=== PATIENT | female | born 1940 | race Caucasian/White ===

== ENCOUNTER 2018-10-28 11:03 | Outpatient (CLI) | payer MEDICARE, OTHER ==
[~2018-10-28 11:03] MED LIST: Iopamidol 300 61% 100 ML VIAL FS ONE
--- NOTE | 2018-10-28 13:23 | CT ---
CT ABDOMEN AND PELVIS WITH ORAL AND IV CONTRAST: HISTORY: Severe epigastric pain COMPARISON: None FINDINGS: The lung bases are unremarkable. There is a calcified granuloma in the liver. The patient is post cho lecystectomy, appendectomy and hysterectomy. The spleen, pancreas, adrenal glands and right kidney are normal. There is a 2 cm cystic mass in the left renal cortex with coarse posterior calcification. No free air, free fluid or lymphadenopathy seen in the abdomen or pelvis. The small bowel loops are n ot abnormally dilated. There is mild colonic diverticulosis. There are vascular calcifications without evidence of aneurysmal dilatation of the abdominal aorta. There are degenerative changes in t he spine. IMPRESSION: 1. Left renal mass. Follow-up exam is recommended in 3 months. 2. Colonic diverticulosis.
== END 2018-10-28 11:04 | disposition home or self-care (01) ==
LOC: SCSCT 11:03
PROVIDERS: ATTEND Family Medicine
DX: K21.9 Gastro-esophageal reflux disease without esophagitis (principal); R10.13 Epigastric pain; N28.89 Other specified disorders of kidney and ureter; K57.30 Diverticulosis of large intestine without perforation or abscess without bleeding
CPT/HCPCS: 74177; Q9967

== ENCOUNTER 2019-02-07 07:26 | Outpatient (CLI) | payer MEDICARE, OTHER ==
--- NOTE | 2019-02-07 08:56 | CT ---
CT ABDOMEN WITH AND WITHOUT CONTRAST: HISTORY: Kidney mass. COMPARISON: CT examination from October 2018. FINDINGS: The lung bases are clear. No pericardial effusion. On the noncontrast portion of the examination there is a large calculus within the dilated interpolar calyx. This calculus measures 18 mm in greatest dimension. No hydroureteronephrosis. No other filling defects within the renal calyces, pelves, nor ureters on t he delayed phase of contrast. Of note this is a CT abdomen and not CT abdomen/pelvis examination therefore the distal ureters and urinary bladder are not evaluated. No abnormal urothelial enhancement although on what is labeled as the arterial phase there is already contrast within the collecting systems therefore evaluation is limited. Prior cholecystectomy. The liver and spleen as well as pancreas are unremarkable. Adrenal glands are unremarkable. The aortic contour is nonaneurysmal. Very small sliding hiatal hernia. IMPRESSION: What was described as a mass of the left kidney is a large calcification within the dilated interpola r calyx. No solid enhancing mass. Transcribed Date/Time: 02/07/2019 9:07 AM
[2019-02-07] MEDS ORDERED: Iopamidol 370 76% 100 ML VIAL ONE (09:00)
== END 2019-02-07 07:27 | disposition home or self-care (01) ==
LOC: SCSCT 07:26
PROVIDERS: ATTEND Family Medicine
DX: N28.89 Other specified disorders of kidney and ureter (principal); N13.30 Unspecified hydronephrosis
CPT/HCPCS: 74170; Q9967

== ENCOUNTER 2019-04-24 06:12 | Outpatient (CLI) | payer MEDICARE, OTHER ==
[2019-04-24 11:35] LABS: Hemoglobin 13.7 g/dL (12.0-16.0); Mean Corpuscular HGB CONC 32.7 g/dL (32.0-36.0); Mean Corpuscular Hemoglobin 31.8 pg (27.0-31.0); Mean Corpuscular Volume 97.2 fL (78.0-98.0); Mean Platelet Volume 8.1 fL (7.4-10.4); Platelet Count 208 thou/uL (130-400); RBC Distribution Width 11.8 % (11.5-14.5); Red Blood Cell (RBC) Count 4.32 mill/uL (4.20-5.40); White Blood Cell (WBC) Count 7.4 thou/uL (4.8-10.8)
[2019-04-24 11:48] LABS: Bacteria/HPF None Seen HPF (None Seen); Bilirubin Negative (Negative); Blood, Urine Trace (Negative); Clarity Clear (Clear); Glucose, Urine (Dipstick) Normal (Negative); Leukocyte 75 Leu/uL (Negative); Nitrite Negative (Negative); Protein, Urine (Dipstick) Negative (Neg-Trace); RBC/HPF 0-3 HPF (0-3); Squamous Epithelial 0-3 HPF (0-3); Urobilinogen Normal mg/dL (Less than 2); WBC/HPF 0-3 HPF (0-3)
[2019-04-24 12:04] LABS: Anion Gap 12 mmol/L (10-20); BUN (Urea Nitrogen) 18 mg/dL (9.8-20.1); Calc. Creatinine Clearance 0 mL/min (70-130); Calcium 9.5 mg/dL (7.8-10.44); Carbon Dioxide 26 mmol/L (23-31); Chloride 106 mmol/L (98-107); Estimated GFR-MDRD 74; Glucose 93 mg/dL (83-110); Sodium 140 mmol/L (136-145)
== END 2019-04-24 06:13 | disposition home or self-care (01) ==
LOC: LABBT 06:12
PROVIDERS: ATTEND Urology
DX: Z01.818 Encounter for other preprocedural examination (principal); N20.0 Calculus of kidney; N28.89 Other specified disorders of kidney and ureter
CPT/HCPCS: 80048; 81001; 85027; 87086; 93005; 93010

== ENCOUNTER 2019-05-02 06:14 | Day surgery (SDC) | payer MEDICARE, OTHER ==
[2019-04-24 09:56] VITALS: BMI 26.1
[2019-05-02] MEDS ORDERED: Iothalamate Meglumine 60% 50 ML VIAL FS ONE (07:10)
[2019-05-02] MEDS ORDERED: Levofloxacin 500 mg/D5W 100 ml Premix Bag ONE (07:14)
[2019-05-02] MEDS ORDERED: Fentanyl 100 MCG/2 ML VIAL ONE (09:13)
--- NOTE | 2019-05-02 10:28 | RAD ---
INTRAPROCEDURE FLUOROSCOPY FOR RETROGRADE IVP: HISTORY: Left-sided renal calculi. FINDINGS: There are increased calcifications projecting over the left renal silhouette compatible with intraren al calculi. Multiple fluoroscopic images demonstrate contrast opacification of the left intra- and extrarenal collecting system. There is focal dilatation of the calyx at the level of the renal calcul i. Last images demonstrate a left-sided ureteral stent, incompletely evaluated. IMPRESSION: Fluoroscopy as above. Transcribed Date/Time: 05/02/2019 10:56 AM
[2019-05-02] MEDS ORDERED: Phenazopyridine HCl 97.5 MG TABLET ONE (10:40)
[2019-05-02] MEDS ORDERED: Oxybutynin 5 MG TAB ONE (10:40)
[2019-05-02] MEDS ORDERED: Ketorolac Tromethamine 30 MG/ML VIAL ONE (10:40)
--- NOTE | 2019-05-02 11:39 | OP ---
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 POSTOPERATIVE DIAGNOSES: Left calyceal diverticulum with stenotic infundibulum and kidney stones within the diverticulum. PROCEDURES PERFORMED: Left ureteroscopy with laser of stenotic infundibulum/intrarenal stricture, laser lithotripsy of calyceal stones. ANESTHESIA: General. COMPLICATIONS: None. BLOOD LOSS: None. SPECIMEN: None. DESCRIPTION OF PROCEDURE: After informed consent, the patient was taken to the operating room, transferred to the table under her own power. Anesthesia was established. A time-out was performed showing the correct patient, site, and procedure. Preoperative antibiotics were administered. She was prepped and draped in the lithotomy position. The rigid cystoscope was advanced through the urethra into the bladder. The bladder was systematically examined noting no mucosal abnormalities. The left ureteral orifice was cannulated with a wire, which was negotiated up to the level of the renal pelvis under fluoroscopic guidance. Under fluoroscopy, the stones were clearly seen in the mid pole calyceal diverticulum. An access sheath was placed over the wire into the mid to proximal ureter. A retrograde pyelogram was performed through this showing good filling of the renal pelvis. The flexible ureteroscope was then passed through the access sheath into the renal pelvis. The stenotic infundibulum leading to the stones was identified and tissue settings were used with a 200 micron laser fiber to open the infundibulum to allow access. The angle into the infundibulum remained very difficult. The laser fiber was used to treat the stones in a diverticulum. On inspection, there were several stones between 5 and 10 mm in size. Visualization was difficult due to the angle into the infundibulum and a mild amount of bleeding from opening the stenotic infundibulum. I was eventually unable to safely proceed with the procedure, at which point, a wire was replaced. The access sheath and scope were withdrawn, and a 6 x 24 double-J ureteral stent positioned with a curl in the kidney and curl in the bladder under fluoroscopic guidance. The patient was then awoken from anesthesia, transferred back to her hospital bed, and taken to PACU in stable condition, where she will discharge home upon recovery. I will see her next Wednesday, at which point, we will check a KUB to determine if shockwave lithotripsy or repeat ureteroscopy would be most beneficial for her. Job ID: [id number]
[2019-05-02] MEDS ORDERED: Dexamethasone 20 MG/5 ML VIAL ONE (13:24)
[2019-05-02] MEDS ORDERED: Lidocaine 1% PF 5 ML VIAL ONE (13:24)
[2019-05-02] MEDS ORDERED: PROPOFOL 200 MG/20 ML VIAL ONE (13:24)
[2019-05-02] MEDS ORDERED: Ondansetron PF 4 MG/2 ML Vial ONE (13:24)
== END 2019-05-02 12:05 | disposition home or self-care (01) ==
LOC: SDC 06:14
PROVIDERS: ATTEND Urology
PROC: 0TF48ZZ Fragmentation in Left Kidney Pelvis, Via Natural or Artificial Opening Endoscopic (ICD-10-PCS; principal; 2019-05-02)
PROC: 0T778DZ Dilation of Left Ureter with Intraluminal Device, Via Natural or Artificial Opening Endoscopic (ICD-10-PCS; 2019-05-02)
DX: N20.0 Calculus of kidney (principal); N28.89 Other specified disorders of kidney and ureter; Z79.1 Long term (current) use of non-steroidal anti-inflammatories (NSAID); Z79.82 Long term (current) use of aspirin; Z79.899 Other long term (current) drug therapy; Z91.040 Latex allergy status
CPT/HCPCS: 74420; C1769; J1100; J1885; J1956; J2001; J2405; J2597; J2704; J3010

== ENCOUNTER 2019-05-05 13:36 | Outpatient (CLI) | payer MEDICARE, OTHER ==
--- NOTE | 2019-05-05 14:00 | RAD ---
XR Abdomen 1 View/KUB HISTORY: Renal stone COMPARISON: None. FINDINGS: There are left-sided renal calculi. A left ureteral stent is present. No definite ureteral, bladder or right-sided calculi are seen.
== END 2019-05-05 13:37 | disposition home or self-care (01) ==
LOC: RAD 13:36
PROVIDERS: ATTEND Urology
DX: N20.0 Calculus of kidney (principal)
CPT/HCPCS: 74018

== ENCOUNTER 2019-05-31 10:02 | Outpatient (CLI) | payer MEDICARE, OTHER ==
--- NOTE | 2019-05-31 10:24 | RAD ---
KUB: DATE: 05/31/2019. COMPARISON: 05/05/2019. HISTORY: Renal stone disease. FINDINGS: There is a left double-J ureteral stent. Clips in the right upper quadrant suggest prior cholecystect arnel. No right upper quadrant calcifications are seen. There are multiple subcentimeter calcifications along the course of the left double-J ureteral stent proximally, just inferior to the proximal curl, measuring in the 4-5 mm range. Lateral to the proximal curl there is a 1.9 cm lobulated calcification suggesting a prominent renal stone disease wi thin the lower pole of the left kidney, significantly progressed when compared to the prior exam. In addition, there is a lobulated 1.7 cm calcification inferior to the 12th rib on the left suggestin g a 1.7 cm conglomerate of mid pole left renal calculi. Some of the calculi now projecting lateral to the proximal curl of the left double-J ureteral stent may have propagated from the upper or mid po le regions. The bowel gas pattern appears nonobstructed. IMPRESSION: Prominent renal stone disease on the left with calculi adjacent to the proximal aspect of the left ur eteral stent. Transcribed Date/Time: 05/31/2019 10:56 AM
== END 2019-05-31 10:03 | disposition home or self-care (01) ==
LOC: RAD 10:02
PROVIDERS: ATTEND Urology
DX: N20.2 Calculus of kidney with calculus of ureter (principal); Z96.0 Presence of urogenital implants
CPT/HCPCS: 74018

== ENCOUNTER 2020-02-26 13:58 | Outpatient (CLI) | payer MEDICARE, OTHER ==
--- NOTE | 2020-02-26 14:20 | RAD ---
KUB INDICATION: Calyceal diverticulum COMPARISON: Prior exam dated May 31, 2019 FINDINGS: Bowel gas: There is a prominent amount of retained stool within the colon. Cholecystomy clips are see n within the right lower quadrant. Lung bases: Not included Additional findings: There is a new left double-J ureteral stent in place. There is been interval fra gmentation the large staghorn calculus involving the region of the lower pole of the left kidney. Large 1.7 cm calculus involving the mid to superior pole left kidney is stable. There are new 5 and 3 mm calculi overlying the mid left kidney. There is a 5 mm stone adjacent to the proximal aspect of the double-J left ureteral stent. No additional suspicious calcification is evident. Osseous structures: No acute osseous abnormality is demonstrated. IMPRESSION: 1. Interval fragmentation of the left lower pole staghorn calculus. Large 1.7 cm calculus within the mid to superior pole of the left kidney is stable. New calculi are seen within the region of the left mid kidney and adjacent to the proximal left ureteral stent as above. 2. Prominent amount of retained stool within the colon.
== END 2020-02-26 13:59 | disposition home or self-care (01) ==
LOC: RAD 13:58
PROVIDERS: ATTEND Urology
DX: N28.89 Other specified disorders of kidney and ureter (principal); N20.0 Calculus of kidney; K59.00 Constipation, unspecified; Z96.0 Presence of urogenital implants
CPT/HCPCS: 74018

== ENCOUNTER 2020-03-26 07:48 | Day surgery (SDC) | payer MEDICARE, OTHER ==
[2020-03-25 11:26] VITALS: BMI 25.4
[2020-03-26] MEDS ORDERED: Levofloxacin 500 mg/D5W 100 ml Premix Bag ONE (08:10)
[2020-03-26] MEDS ORDERED: Iothalamate Meglumine 60% 50 ML VIAL FS ONE (10:06)
[2020-03-26] MEDS ORDERED: Fentanyl 100 MCG/2 ML VIAL ONE (10:19)
[2020-03-26] MEDS ORDERED: Lidocaine 1% PF 5 ML VIAL ONE (11:01)
[2020-03-26] MEDS ORDERED: PROPOFOL 200 MG/20 ML VIAL ONE (11:01)
[2020-03-26] MEDS ORDERED: Ondansetron PF 4 MG/2 ML Vial ONE (11:01)
[2020-03-26] MEDS ORDERED: Dexamethasone 20 MG/5 ML VIAL ONE (11:01)
[2020-03-26] MEDS ORDERED: Ketorolac Tromethamine 30 MG/ML VIAL ONE (11:38)
[2020-03-26] MEDS ORDERED: Oxybutynin 5 MG TAB ONE (11:38)
--- NOTE | 2020-03-26 12:03 | OP ---
DATE OF PROCEDURE: 03/26/2020 PREOPERATIVE DIAGNOSIS: Left ureteral stones. POSTOPERATIVE DIAGNOSIS: Left ureteral stones. PROCEDURES PERFORMED: Left ureteroscopy with laser lithotripsy, basket extraction, retrograde pyelogram, intraoperative interpretation of radiologic imaging, 6 x 24 double-J ureteral stent without string. ANESTHESIA: General. COMPLICATIONS: None. ESTIMATED BLOOD LOSS: Minimal. SPECIMENS: Left ureteral stone fragments. DESCRIPTION OF PROCEDURE: After informed consent, the patient was taken to the operating room, transferred to the table on her own power. Anesthesia was established. A time-out was performed showing the correct patient, site, and procedure. Preoperative antibiotics were administered. She was prepped and draped in the lithotomy position. The semi-rigid ureteroscope was inserted through the urethra into the bladder. The left ureteral orifice was cannulated with a wire. The wire was negotiated past the multiple stones throughout the ureter into the renal pelvis with moderate amount of difficulty. The scope was then inserted alongside the wire into the distal ureter, where stones were quickly encountered. A retrograde pyelogram was performed showing multiple filling defects throughout the ureter and mild hydronephrosis. A 365 micron laser fiber was used to fragment all of the stones. There were likely 8 to 10 stones throughout the entirety of the ureter. Many of the resulting fragments passed on their own; however, I did have to basket 2 dozen resulting pieces. The ureter was then reinspected, noting no clinically significant stone fragments remaining. A completion retrograde was performed, noting good placement of the wire and then the scope withdrawn. A 6 x 24 double-J ureteral stent was passed over the wire with a curl in the kidney and curl in the bladder. The bladder was then drained with a cystoscope sheath, draining several more stone fragments, which were also passed off. The patient was then awoken from anesthesia, transferred back to her hospital bed, and taken to PACU in a stable condition, where she will be discharged to home upon recovery. Job ID: [id number]
--- NOTE | 2020-03-26 12:24 | RAD ---
RETROGRADE PYELOGRAM: Ten fluoroscopic images from OR are presented. INDICATION: Intraoperative imaging during uteroscopy and ureteral stent placement. FINDINGS/IMPRESSION: These images demonstrate catheter and wire placement in the left ureter with partial opacification of the left collecting structures. Final image demonstrates a left ureteral stent in place. POS: AGW
== END 2020-03-26 13:25 | disposition home or self-care (01) ==
LOC: SDC 07:48
PROVIDERS: ATTEND Urology
PROC: 0TC78ZZ Extirpation of Matter from Left Ureter, Via Natural or Artificial Opening Endoscopic (ICD-10-PCS; principal; 2020-03-26)
PROC: 0T778DZ Dilation of Left Ureter with Intraluminal Device, Via Natural or Artificial Opening Endoscopic (ICD-10-PCS; 2020-03-26)
DX: N13.2 Hydronephrosis with renal and ureteral calculous obstruction (principal); I10 Essential (primary) hypertension; Z79.82 Long term (current) use of aspirin; Z79.899 Other long term (current) drug therapy; Z91.040 Latex allergy status
CPT/HCPCS: 74420; 82365; 88300; J1100; J1885; J1956; J2405; J2704; J3010

== ENCOUNTER 2020-07-10 14:51 | Outpatient (CLI) | payer MEDICARE, OTHER | END 2020-07-10 14:52 | disposition home or self-care (01) | LOC: RAD 14:51 | PROVIDERS: ATTEND Urology | DX: N28.89 Other specified disorders of kidney and ureter (principal); N20.0 Calculus of kidney; R93.5 Abnormal findings on diagnostic imaging of other abdominal regions, including retroperitoneum | CPT/HCPCS: 74018 ==

== ENCOUNTER 2022-06-30 11:38 | Outpatient (CLI) | payer MEDICARE, OTHER | END 2022-06-30 11:39 | disposition home or self-care (01) | LOC: SCSRAD 11:38 | PROVIDERS: ATTEND Family Medicine | DX: M25.551 Pain in right hip (principal) ==

== ENCOUNTER 2023-12-30 09:53 | Outpatient (CLI) | payer MEDICARE, OTHER ==
[2023-12-30 10:43] LABS: #Basophils 0.05 10x3/uL (0.0-0.2); %Basophils 0.6 % (0.0-1.0); %Eosinophils 0.8 % (0.0-10.0); %Lymphocytes 32.2 % (21.0-51.0); %Monocytes 6.4 % (0.0-10.0); %Neutrophils 59.7 % (42.0-75.0); Hematocrit 40.2 % (36.0-47.0); Hemoglobin 12.7 g/dL (12.0-16.0); Mean Corpuscular HGB CONC 31.6 g/dL (32.0-36.0); Mean Platelet Volume 9.5 fL (7.4-10.4); Platelet Count 223 10x3/uL (130-400); RBC Distribution Width 14.4 % (11.5-14.5)
[2023-12-30 10:59] LABS: Prothrombin Time 12.8 sec (12.0-14.7)
[2023-12-30 11:00] LABS: PTT 33.9 sec (22.9-36.1)
[2023-12-30 11:02] LABS: Anion Gap 12 mmol/L (10-20); BUN (Urea Nitrogen) 16 mg/dL (9.8-20.1); Calc. Creatinine Clearance 0 mL/min (70-130); Calcium 9.8 mg/dL (7.8-10.44); Carbon Dioxide 28 mmol/L (23-31); Chloride 105 mmol/L (98-107); Estimated GFR 59; Glucose 99 mg/dL (83-110); Potassium 4.1 mmol/L (3.5-5.1); Sodium 141 mmol/L (136-145)
[2023-12-30 11:18] LABS: Bacteria/HPF 4+ HPF (None Seen); Bilirubin Negative (Negative); Blood, Urine 2+ (Negative); Clarity Turbid (Clear); Glucose, Urine (Dipstick) Normal (Negative); Ketone, Urine Negative (Negative); Leukocyte 500 Leu/uL (Negative); Nitrite Negative (Negative); Protein, Urine (Dipstick) 20 mg/dL (Neg-Trace); Specific Gravity, Urine 1.015 (1.002-1.036); Squamous Epithelial 0-3 HPF (0-3); Urobilinogen Normal mg/dL (Less than 2); WBC/HPF Greater than 50 HPF (0-3); pH, Urine 5.5 (5.0-9.0)
== END 2023-12-30 09:54 | disposition home or self-care (01) ==
LOC: LABBT 09:53
PROVIDERS: ATTEND Urology
DX: Z01.818 Encounter for other preprocedural examination (principal); N13.5 Crossing vessel and stricture of ureter without hydronephrosis; N20.0 Calculus of kidney
CPT/HCPCS: 80048; 81001; 85025; 85610; 85730; 87077; 87086; 87186; 93005; 93010